=== PATIENT | male | born 1975 | race Caucasian/White ===

== ENCOUNTER 2024-03-10 18:23 | Emergency (ER) | payer BC, OTHER ==
[2024-03-10 18:26] VITALS: RESP 18
[2024-03-10] MEDS: TOPICAL SKIN ADHESIVE 1 EACH AMP TOPICAL ONE (18:47)
--- NOTE | 2024-03-10 19:23 | ED ---
ENT HPI - General Chief complaint: ENT Stated complaint: bee in ear Time Seen by Provider: 03/10/24 19:21 Source: patient, RN notes reviewed Mode of arrival: ambulatory Limitations: no limitations - History of Present Illness Initial comments: Patient is a 48-year-old male presenting to the ER with a chief complaint of left ear foreign body. Patient states he was working in the yard and encountered a swarm of bees. He believes one of the bees entered his ear canal. States he tried to rub it out without success. On his way to the hospital he ran into [employer] who poured water in his ear to try to remove insect. This was unsuccessful. Patient presented to the ER he states that he can hear a buzzing in his ear. Patient denies any other complaints at this time. - Related Data Allergies Allergy/AdvReac Type Severity Reaction Status Date / Time No Known Allergies Allergy Verified 03/10/24 18:26 Review of Systems ROS Statement: Those systems with pertinent positive or pertinent negative responses have been documented in the HPI. ROS Other: All systems not noted in ROS Statement are negative. Past Medical History Past Medical History: No Reported History History of Any Multi-Drug Resistant Organisms: None Reported Past Surgical History: No Surgical Hx Reported Past Psychological History: No Psychological Hx Reported Smoking Status: Never smoker Past Alcohol Use History: None Reported Past Drug Use History: None Reported General Exam Limitations: no limitations General appearance: alert, in no apparent distress, anxious ENT exam: Present: other (There is a black rounded with iridescent wings and legs foreign body in left external auditory canal. Canal is erythematous with cerumen present. No left mastoid tenderness) Respiratory exam: Present: normal lung sounds bilaterally. Absent: respiratory distress, wheezes, rales, rhonchi, stridor Cardiovascular Exam: Present: regular rate, normal rhythm, normal heart sounds. Absent: systolic murmur, diastolic murmur, rubs, gallop, clicks Skin exam: Present: warm, dry, intact, normal color. Absent: rash Course Vital Signs 03/10/24 03/10/24 18:23 20:23 Temperature 98.5 F 98.2 F Pulse Rate 107 H 91 Respiratory 18 18 Rate Blood Pressure 154/91 140/87 O2 Sat by Pulse 97 98 Oximetry Procedures - Foreign Body Removal Ear Location: ear canal (L) Foreign Body Suspected: insect If Insect Suspected: ear canal instilled with Lidocaine Foreign Body Removed: no Foreign Body Removal Technique: forceps Tympanic Membrane Intact: Yes (Visualized portion of tympanic membrane intact. Insect is limiting view) Complications: pain Medical Decision Making - Medical Decision Making Was pt. sent in by a medical professional or institution ([facility] Chow, P D DRIVER, urgent care, hospital, or long-term...) When possible be specific @ -No Did you speak to anyone other than the patient for history (EMS, parent, family, police, friend...)? What history was obtained from this source @ -No Did you review nursing and triage notes (agree or disagree)? Why? @ -I reviewed and agree with nursing and triage notes Were old charts reviewed (outside hosp., previous admission, EMS record, old EKG, old radiological studies, urgent care reports/EKG's, long-term records)? Report findings @ -No old charts were reviewed Differential Diagnosis (chest pain, altered mental status, abdominal pain women, abdominal pain men, vaginal bleeding, weakness, fever, dyspnea, syncope, headache, dizziness, GI bleed, back pain, seizure, CVA, palpatations, mental health, musculoskeletal)? @ -Foreign body, tympanic membrane perforation, mastoiditis, otitis media, otitis externa This list is not meant to be all-inclusive EKG interpreted by me (3pts min.). @ -None done X-rays interpreted by me (1pt min.). @ -None done CT interpreted by me (1pt min.). @ -None done U/S interpreted by me (1pt. min.). @ -None done What testing was considered but not performed or refused? (CT, X-rays, U/S, labs)? Why? @ -None What meds were considered but not given or refused? Why? @ -None Did you discuss the management of the patient with other professionals (professionals i.e. [facility] Chow, P D DRIVER, lab, RT, psych nurse, social welfare administrator, fruit thinner, teacher, environmental compliance officer, upper caser)? Give summary @ -Dr. Cavanaugh discussed case with communications planner ENT, Dr. Moura, who will see patient in office tomorrow, 03/11/24, at 1pm. Was smoking cessation discussed for >3mins.? @ -No Was critical care preformed (if so, how long)? @ -No Were there social determinants of health that impacted care today? How? (Homeles sness, low income, unemployed, alcoholism, drug addiction, transportation, low edu. Level, literacy, decrease access to med. care, senior care, rehab)? @ -No Was there de-escalation of care discussed even if they declined (Discuss DNR or withdrawal of care, Hospice)? DNR status @ -No What co-morbidities impacted this encounter? (DM, HTN, Smoking, COPD, CAD, Cancer, CVA, ARF, Chemo, Hep., AIDS, mental health diagnosis, sleep apnea, morbid obesity)? @ -None Was patient admitted / discharged? Hospital course, mention meds given and route, prescriptions, significant lab abnormalities, going to OR and other pertinent info. @ -Discharged. 48 year old male presenting to the ER with a chief complaint of left ear foreign body. Patient believes it is a bee. History and physical exam completed. Vitals within normal limits. Left external auditory canal exam showing an erythematous canal with cerumen present. There is a black shiny object present. There is also an iridescent thin material consistent with insect wings visualized. Foreign body appears to be an insect. Tympanic membrane that is visualized appears to be intact. Ear canal irrigated with lidocaine to prevent insect from moving. Attempted removal with alligator forceps, Exofin on a Q-tip, saline flushes by myself and my attending, Dr. Cavanaugh, without success. There was a small amount of bleeding present during removal attempts which is believed to be from canal irritation as visualized tympanic membrane appears to be intact. Case discussed with on-call ENT, Dr. Moura who will see the patient tomorrow in office 03-11-2024 at 1 PM for further evaluation. Patient will be started on ofloxacin eardrops for infection prophylaxis. Strict return parameters discussed. Patient discharged stable condition. Patient verbally expressed understanding agreement care plan. Case discussed with ED attending, Dr. Cavanaugh. Undiagnosed new problem with uncertain prognosis? @ -No Drug Therapy requiring intensive monitoring for toxicity (Heparin, Nitro, Insulin, Cardizem)? @ -No Were any procedures done? @ -Yes attempted foreign body removal from ear. Diagnosis/symptom? @ -Insect in ear Acute, or Chronic, or Acute on Chronic? @ -Acute Uncomplicated (without systemic symptoms) or Complicated (systemic symptoms)? @ -Uncomplicated Side effects of treatment? @ -No Exacerbation, Progression, or Severe Exacerbation? @ -No Poses a threat to life or bodily function? How? (Chest pain, [place], [place], pneumonia, PE, COPD, DKA, ARF, appy, cholecystitis, CVA, Diverticulitis, Homicidal, Suicidal, threat to staff... and all critical care pts) @ -No Disposition Clinical Impression: Foreign body in ear Disposition: HOME SELF-CARE Condition: Stable Instructions (If sedation given, give patient instructions): Ear Foreign Body (ED) Additional Instructions: Use ofloxacin eardrops 5 drops in affected ear twice daily for 7 days. Please follow-up with ENT, Dr. Moura. Return to the ER for any new or worsening symptoms. Is patient prescribed a controlled substance at d/c from ED?: No Referrals: Meek Lopes DO [Primary Care Provider] - 1-2 days Hair Moura MD [STAFF PHYSICIAN] - 1-2 days Time of Disposition: 19:49
[2024-03-10] MEDS: OFLOXACIN 0.3% OPHTH DROPS 5 ML BOTTLE LEFT EAR STA (20:20)
[2024-03-10 20:25] VITALS: BP 140/87; PULSE 91; TEMP 98.2
== END 2024-03-10 20:26 | disposition home or self-care (01) ==
LOC: EC 18:23
DX: S00.469A Insect bite (nonvenomous) of unspecified ear, initial encounter
CPT/HCPCS: 69200; 99282